=== PATIENT | male | born 1965 | race Caucasian/White ===

== ENCOUNTER 2023-06-20 01:25 | Observation (INO) | payer BC ==
[2023-06-20] VITALS (9 sets, daily range): BP systolic 138–151; BP diastolic 83–94; PULSE 58–66; RESP 17–20; TEMP 97.6–97.8; O2SAT 96–99
[~2023-06-20] VITALS: Ht 170.2 cm; Wt 90.9 kg
[2023-06-20 02:28] LABS: APPEARANCE,URINE CLEAR (CLEAR); BILIRUBIN,URINE NEGATIVE (NEGATIVE); BLOOD, URINE NEGATIVE (NEGATIVE); COLOR,URINE YELLOW (YELLOW); LEUKOCYTE ESTERASE ,URINE NEGATIVE (NEGATIVE); NITRITE, URINE NEGATIVE (NEGATIVE); PROTEIN,URINE NEGATIVE (NEGATIVE); UGLUCOSE NEGATIVE (NEGATIVE); UROBILINOGEN,URINE 0.2 EU/dL (0.2 - 1)
[2023-06-20] MEDS: KETOROLAC 30 MG/ML VIAL IVP ONE (02:30)
[2023-06-20] MEDS: NACL 0.9% 1,000 ML IV SCH ×2 (02:31→09:10)
[2023-06-20 02:40] LABS: BASOPHILS % (AUTO) 0.4 % (0.0-2.0); EOSINOPHILS # (AUTO) 0.2 K/uL (0-0.4); EOSINOPHILS % (AUTO) 3.4 % (0.0-4.0); HEMATOCRIT 43.4 % (36-52); HEMOGLOBIN 15.3 g/dL (12.0-18.0); LYMPHOCYTES # (AUTO) 1.7 K/uL (2.0-11.5); LYMPHOCYTES % (AUTO) 28.4 % (20.5-51.1); MEAN CORPUSCULAR HEMOGLOBIN 32 pg (27-31); MEAN CORPUSCULAR HGB CONC 35 g/dL (33-37); MEAN CORPUSCULAR VOLUME 91.1 fL (80-94); MONOCYTES # (AUTO) 0.6 K/uL (0.8-1.0); MONOCYTES % (AUTO) 10.5 % (1.7-9.3); NEUTROPHILS # (AUTO) 3.5 K/uL (1.8-7.7); NEUTROPHILS % (AUTO) 57.3 % (42.2-75.2); PLATELET COUNT (AUTO) 215 K/uL (140-450); RED BLOOD CELL COUNT(AUTO) 4.76 MIL/uL (4.20-6.10); RED CELL DISTRIBUTION WIDTH 13.1 % (11.6-13.7); WHITE BLOOD COUNT (AUTO) 6.1 K/uL (4.8-10.8)
[2023-06-20 02:51] LABS: ANION GAP 12.1 (8-16); CALCIUM 8.7 mg/dL (8.5-10.1); CARBON DIOXIDE 26.5 mmol/L (21-32); CREATININE 1.1 mg/dL (0.6-1.3); POTASSIUM 3.6 mmol/L (3.5-5.1)
[2023-06-20 02:57] LABS: ALBUMIN 3.8 g/dL (3.4-5.0); BILIRUBIN,DIRECT 0.1 mg/dL (0.0-0.3); TOTAL BILIRUBIN 0.6 mg/dL (0.0-1.0); TOTAL PROTEIN, SERUM 6.7 g/dL (6.4-8.2)
[2023-06-20] MEDS: MORPHINE SULFATE 4 MG/ML SYR IVP ONE ×2 (03:36→07:36)
[2023-06-20] MEDS ORDERED: LACT-58 PO (03:50)
[2023-06-20] MEDS ORDERED: MAGNESIUM OXIDE 400 MG TAB PO PRN (09:10)
[2023-06-20] MEDS ORDERED: ZOLPIDEM 5 MG TAB PO PRN (09:10)
[2023-06-20] MEDS ORDERED: HYDROcodone/APAP 5/325 MG 1 TAB TAB PO PRN (09:10)
[2023-06-20] MEDS ORDERED: MAG SULF 2000 MG/WATER PREMIX 50 ML IV PRN (09:10)
[2023-06-20] MEDS ORDERED: ONDANSETRON 4 MG/2 ML VIAL IVP PRN (09:10)
[2023-06-20] MEDS ORDERED: LORazepam 1 MG TAB PO PRN (09:10)
[2023-06-20] MEDS ORDERED: ACETAMINOPHEN 325 MG TAB PO PRN (09:10)
[2023-06-20] MEDS ORDERED: POTASSIUM CHLORIDE 10 MEQ TABER PO PRN (09:10)
[2023-06-20] MEDS ORDERED: KCL 20 MEQ IN 100 mL PREMIX 200 ML IV PRN (09:10)
[2023-06-20] MEDS ORDERED: cefTRIAXone 1,000 MG VIAL ONE (10:22)
[2023-06-20] MEDS ORDERED: ASPI-1822 PO (13:04)
[2023-06-20] MEDS ORDERED: ATOR40TA PO (13:04)
[2023-06-20] MEDS: KETOROLAC 30 MG/ML VIAL IVP SCH (18:01)
[2023-06-20] MEDS: MORPHINE SULFATE 4 MG/ML SYR IVP PRN (20:28)
[2023-06-20] MEDS: ATORVASTATIN 20 MG TAB PO SCH (20:33)
[2023-06-21] VITALS: BP 136/88; PULSE 61; PULSE 69; RESP 18; TEMP 97.9; O2SAT 96
[2023-06-21 04:00] VITALS: BP 127/73; PULSE 61; PULSE 70; RESP 20; TEMP 98.4; O2SAT 97
[2023-06-21 08:00] VITALS: BP 108/62; PULSE 67; RESP 20; TEMP 97.9; O2SAT 96
[2023-06-21 08:24] LABS: BASOPHILS # (AUTO) 0.1 K/uL (0.00-0.22); EOSINOPHILS # (AUTO) 0.1 K/uL (0-0.4); EOSINOPHILS % (AUTO) 1.4 % (0.0-4.0); HEMATOCRIT 45.3 % (36-52); HEMOGLOBIN 15.6 g/dL (12.0-18.0); LYMPHOCYTES # (AUTO) 1.5 K/uL (2.0-11.5); LYMPHOCYTES % (AUTO) 24.9 % (20.5-51.1); MEAN CORPUSCULAR HEMOGLOBIN 32 pg (27-31); MEAN CORPUSCULAR HGB CONC 35 g/dL (33-37); MEAN CORPUSCULAR VOLUME 92.3 fL (80-94); MONOCYTES # (AUTO) 0.5 K/uL (0.8-1.0); MONOCYTES % (AUTO) 9.1 % (1.7-9.3); NEUTROPHILS # (AUTO) 3.8 K/uL (1.8-7.7); NEUTROPHILS % (AUTO) 63.6 % (42.2-75.2); PLATELET COUNT (AUTO) 210 K/uL (140-450); RED CELL DISTRIBUTION WIDTH 12.8 % (11.6-13.7)
[2023-06-21] MEDS ORDERED: ACET-8905 PO (09:02)
[2023-06-21 09:28] LABS: ANION GAP 12.4 (8-16); CALCIUM 8.7 mg/dL (8.5-10.1); CARBON DIOXIDE 24.5 mmol/L (21-32); POTASSIUM 3.9 mmol/L (3.5-5.1)
[2023-06-21] MEDS: ASPIRIN 81 MG TAB.CHEW PO SCH (09:31)
[2023-06-21] MEDS: ENOXAPARIN 40 MG/0.4 ML SYR SUBQ SCH (09:34)
[2023-06-21 12:00] VITALS: BP 111/71; PULSE 65; RESP 18; TEMP 98.2; O2SAT 98
[2023-06-21 14:04] VITALS: BP 111/71; PULSE 65; RESP 18; TEMP 98.2
== END 2023-06-21 15:35 | disposition home or self-care (01) ==
LOC: MED 01:25 → MMU 09:09
PROVIDERS: ADMIT Internal Medicine; ATTEND Internal Medicine
DX: R10.32 Left lower quadrant pain (principal); N28.89 Other specified disorders of kidney and ureter; I24.89 Other forms of acute ischemic heart disease; I25.10 Atherosclerotic heart disease of native coronary artery without angina pectoris; I10 Essential (primary) hypertension; Z79.899 Other long term (current) drug therapy
CPT/HCPCS: 36415; 74176; 80048; 80076; 81003; 83735; 84484; 85025; 87081; 93005; 96361; 96365; 96366; 96372; 96375; 96376; 99285; G0378; J0696; J1650; J1885; J2270; J7060